=== PATIENT | female | born 1995 | race Two or more races ===

== ENCOUNTER 2016-10-28 13:44 | Emergency (ER) | payer OTHER ==
[2016-10-28 14:02] VITALS: BMI 35.5
--- NOTE | 2016-10-28 15:00 | PDOC ---
History of Present Illness <Rick Castro - Last Filed: 10/28/16 15:20> - General History Source: Patient Exam Limitations: No Limitations - History of Present Illness Initial Comments: 10/28/16 15:17 The patient is a 21-year-old woman, accompanied by her mother, with no past medical history who presents to the emergency department who presents to the emergency department for further evaluation of a persistent cough. Patient states that she has seasonal allergies and had been experiencing a constant cough for the past week. She noted one episode of scant blood when coughing today. She also reports associated pleuritic chest pain that is worse when taking deep breathes and with minimal musculoskeletal maneuvers. 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 She denies any shortness of breath, fevers, chills, night sweats, lower extremity swelling/pain , abdominal pain, nausea, vomiting, diarrhea and any urinary complaints. She denies recent travel/surgeries/immobility, lower extremity edema, calf pain or tenderness, tobacco use, hormone use, personal or family history of thrombosis. Allergies: No Known Drug Allergies. Pats Surgical History: None reported Social History: No tobacco, EtOH and recreational drug use. <Bianca Holland - Last Filed: 10/28/16 15:26> - General Chief Complaint: Chest Pain Stated Complaint: CHEST PAIN, COUGHING BLOOD Time Seen by Provider: 10/28/16 15:00 Past History - Psycho/Social/Smoking Cessation Hx Anxiety: No Suicidal Ideation: No Smoking History: Never smoked Hx Alcohol Use: No Drug/Substance Use Hx: No Substance Use Type: None <Rick Castro - Last Filed: 10/28/16 15:20> <Bianca Holland - Last Filed: 10/28/16 15:26> - Past Medical History Allergies/Adverse Reactions: Allergies Allergy/AdvReac Type Severity Reaction Status Date / Time No Known Allergies Allergy Verified 10/28/16 13:59 Home Medications: Ambulatory Orders Valacyclovir HCl [Valtrex -] 1,000 mg PO BID #14 tablet 09/20/15 Benzonatate [Tessalon Pearls -] 100 mg PO TID PRN #21 capsule 10/28/16 Loratadine [Claritin -] 10 mg PO DAILY #7 tablet 10/28/16 Naproxen [Naprosyn] 500 mg PO BID PRN #20 tablet 10/28/16 Review of Systems - Review of Systems Able to Perform ROS?: Yes Comments:: 10/28/16 15:17 CONSTITUTIONAL: Absent: fever, chills, diaphoresis, generalized weakness, malaise, loss of appetite HEENT: Absent: rhinorrhea, nasal congestion, throat pain, throat swelling, difficulty swallowing, mouth swelling, ear pain, eye pain, visual Changes CARDIOVASCULAR: Present: Chest Pain. Absent: syncope, palpitations, irregular heart rate, lightheadedness, peripheral edema RESPIRATORY: Present: Cough. Episode of scant blood. Absent: shortness of breath , dyspnea with exertion, orthopnea, wheezing, stridor GASTROINTESTINAL:Absent: abdominal pain, abdominal distension, nausea, vomiting , diarrhea, constipation, melena, hematochezia GENITOURINARY: Absent: dysuria, frequency, urgency, hesitancy, hematuria, flank pain, genital pain MUSCULOSKELETAL: Absent: myalgia, arthralgia, joint swelling SKIN: Absent: rash, itching, pallor HEMATOLOGIC/IMMUNOLOGIC: Absent: easy bleeding, easy bruising, lymphadenopathy, frequent infections ENDOCRINE:Absent: unexplained weight gain, unexplained weight loss, heat intolerance, cold intolerance NEUROLOGIC: Absent: headache, focal weakness or paresthesias, dizziness, unsteady gait, seizure, mental status changes, bladder or bowel incontinence PSYCHIATRIC: Absent: anxiety, depression, suicidal or homicidal ideation, hallucinations <Bianca Holland - Last Filed: 10/28/16 15:26> *Physical Exam - Vital Signs Last Vital Signs Temp Pulse Resp BP Pulse Ox 98.5 F 83 18 135/69 99 10/28/16 13:59 10/28/16 13:59 10/28/16 13:59 10/28/16 13:59 10/28/16 13:59 <Rick Castro - Last Filed: 10/28/16 15:20> - Vital Signs Last Vital Signs Temp Pulse Resp BP Pulse Ox 98.5 F 83 18 135/69 99 10/28/16 13:59 10/28/16 13:59 10/28/16 13:59 10/28/16 13:59 10/28/16 13:59 - Physical Exam Comments: 10/28/16 15:17 GENERAL: Well developed, well nourished. Awake and alert. No acute distress. HEENT: Normocephalic, atraumatic. PERRLA, EOMI. No conjunctival pallor. Sclera are non-icteric. Moist mucous membranes. Oropharynx is clear. NECK: Supple. Full ROM. No JVD. CARDIOVASCULAR: Regular rate and rhythm. No murmurs, rubs, or gallops. Distal pulses are 2+ and symmetric. PULMONARY: No evidence of respiratory distress. Lungs clear to auscultation bilaterally. No wheezing, rales or rhonchi. ABDOMINAL: Soft. Non-tender. Non-distended. No rebound or guarding. No organomegaly. Normoactive bowel sounds. MUSCULOSKELETAL: There is some tenderness to palpation at the bilateral sternocostal margins. Normal range of motion at all joints. No bony deformities or tenderness. No CVA tenderness. EXTREMITIES: No cyanosis. No clubbing. No edema. No calf tenderness. SKIN: Warm and dry. Normal capillary refill. No rashes. No jaundice. NEUROLOGICAL: Alert, awake, appropriate. Cranial nerves 2-12 intact. No deficits to light touch and temperature in face, upper extremities and lower extremities. No motor deficits in the in face, upper extremities and lower extremities. Normoreflexic in the upper and lower extremities. Normal speech. PSYCHIATRIC: Cooperative. Good eye contact. Appropriate mood and affect. <Bianca Holland - Last Filed: 10/28/16 15:26> Medical Decision Making - Medical Decision Making 10/28/16 15:04 The patient is very well-appearing and in no acute distress She has no risk factors for pulmonary embolism PERC negative EKG noted: Normal sinus rhythm at 78, normal axis, normal intervals, no ST changes She has signs and symptoms consistent with costochondritis Will obtain chest x-ray 10/28/16 15:20 Chest x-ray emergency Department interpretation: No acute cardiopulmonary disease Clinical impression: Cough Costochondritis I discussed the physical exam findings, ancillary test results and final diagnoses with the patient. I answered all of the patient's questions. The patient was satisfied with the care received and felt comfortable with the discharge plan and treatment plan. The patient will call their primary care physician within 24 hours to arrange follow-up and will return to the Emergency Department with any new, persistent or worsening symptoms. <Rick Castro - Last Filed: 10/28/16 15:20> *DC/Admit/Observation/Transfer <Rick Castro - Last Filed: 10/28/16 15:20> - Attestations Scribe Attestion: 10/28/16 15:17 Documentation prepared by Bianca Holland, acting as medical instrument technician for Rick Castro MD. <Bianca Holland - Last Filed: 10/28/16 15:26> Diagnosis at time of Disposition: Cough, Costochondritis - Discharge Dispostion Disposition: HOME - Prescriptions Prescriptions: Loratadine [Claritin -] 10 mg PO DAILY #7 tablet Naproxen [Naprosyn] 500 mg PO BID PRN #20 tablet PRN Reason: Pain Benzonatate [Tessalon Pearls -] 100 mg PO TID PRN #21 capsule PRN Reason: Cough - Referrals Referrals: Trina London MD [Staff Physician] - - Patient Instructions Printed Discharge Instructions: DI for Costochondritis, Allergic Rhinitis, DI for Cough -- Adult Additional Instructions: Return to the emergency department immediately with ANY new, persistent or worsening symptoms. You MUST call and follow up with your doctor tomorrow. Please make sure your doctor reviews the results of your emergency department evaluation. - Post Discharge Activity Work/School Note: Back to Work
[2016-10-28] MEDS ORDERED: IBUPROFEN 400 MG TABLET (FP) PO ONE ×2 (15:05→15:32)
[2016-10-28 15:47] VITALS: BP 135/75; PULSE 84; TEMP 98.1
--- NOTE | 2016-10-29 10:49 | EKG ---
Test Reason : Blood Pressure : / mmHG Vent. Rate : 078 BPM Atrial Rate : 078 BPM P-R Int : 130 ms QRS Dur : 080 ms QT Int : 386 ms P-R-T Axes : 029 049 019 degrees QTc Int : 440 ms NORMAL SINUS RHYTHM WITH SINUS ARRHYTHMIA NORMAL ECG NO PREVIOUS ECGS AVAILABLE Confirmed by JOSHUA PRAJAPATI, YESICA ([id number]) on 10/29/2016 10:48:51 AM Referred By: Confirmed By:YESICA LEWIS MD
== END 2016-10-28 15:47 | disposition home or self-care (01) ==
LOC: JER 13:44
DX: M94.0 Chondrocostal junction syndrome [Tietze] (principal); R05 Cough; J30.2 Other seasonal allergic rhinitis
CPT/HCPCS: 71020-TC; 93005; 93010; 99284-25

== ENCOUNTER 2017-08-18 10:36 | Emergency (ER) | payer SELFPAY ==
[2017-08-18 10:44] VITALS: BP 120/72; PULSE 81; TEMP 97.9; BMI 33.2
--- NOTE | 2017-08-18 10:55 | PDOC ---
History of Present Illness - General Chief Complaint: Vomiting/Diarrhea Stated Complaint: VOMITING/DIARRHEA (12 WKS ) Time Seen by Provider: 08/18/17 10:54 - History of Present Illness Initial Comments: 08/18/17 10:54 Ms. Bran is a 22 yo female 12 weeks w/ no pmh last seen on for UTI and headache who presents complaining of a 4 day history of nausea, vomiting, diarrhea, and headache. She reports the headache was different today in that it coincided with some blurring at either side of her vision. She has been taking daily tylenol for this headache. She reports she has had daily vomiting during her but now the vomiting coincides with new onset diarrhea which she characterizes as loose stool. Ms. Bran says that she has "not been eating well" over this same time period as she vomits more frequently. Vomit consists of yellow liquid. The patient denies chest pain, shortness of breath, headache and dizziness. Denies dysuria, frequency, urgency and hematuria. Allergies: NKDA Past History - Past Medical History Allergies/Adverse Reactions: Allergies Allergy/AdvReac Type Severity Reaction Status Date / Time No Known Allergies Allergy Verified 08/18/17 10:40 Home Medications: Ambulatory Orders Valacyclovir HCl [Valtrex -] 1,000 mg PO BID #14 tablet 09/20/15 Benzonatate [Tessalon Pearls -] 100 mg PO TID PRN #21 capsule 10/28/16 Loratadine [Claritin -] 10 mg PO DAILY #7 tablet 10/28/16 Naproxen [Naprosyn] 500 mg PO BID PRN #20 tablet 10/28/16 Cephalexin Monohydrate [Keflex -] 500 mg PO BID #14 capsule 08/05/17 Nitrofurantoin Monohyd/M-Cryst [Macrobid -] 100 mg PO BID #14 capsule 08/18/17 COPD: No - Immunization History Immunization Up to Date: Yes - Suicide/Smoking/Psychosocial Hx Smoking History: Never smoked Have you smoked in the past 12 months: No Hx Alcohol Use: No Drug/Substance Use Hx: No Substance Use Type: None Review of Systems - Review of Systems Comments:: 08/18/17 10:54 GENERAL/CONSTITUTIONAL: +Chills as described w/out fever. No weakness. HEAD, EYES, EARS, NOSE AND THROAT: +Vision "blurring" for one self limited episode earlier today. No ear pain or discharge. No sore throat. CARDIOVASCULAR: No chest pain or shortness of breath RESPIRATORY: No cough, wheezing, or hemoptysis. GASTROINTESTINAL: +Nausea with associated vomiting and diarrhea. No constipation. GENITOURINARY: No dysuria, frequency, or change in urination. MUSCULOSKELETAL: No joint or muscle swelling or pain. No neck or back pain. SKIN: No rash NEUROLOGIC: +Frontal pounding headache intermittent for the last 2 weeks. No vertigo, loss of consciousness, or change in strength/sensation. ENDOCRINE: No increased thirst. No abnormal weight change HEMATOLOGIC/LYMPHATIC: No anemia, easy bleeding, or history of blood clots. ALLERGIC/IMMUNOLOGIC: No hives or skin allergy. *Physical Exam - Vital Signs Last Vital Signs Temp Pulse Resp BP Pulse Ox 97.9 F 81 18 120/72 100 08/18/17 10:41 08/18/17 10:41 08/18/17 10:41 08/18/17 10:41 08/18/17 10:41 - Physical Exam Comments: 08/18/17 10:55 GENERAL: Awake, alert, and fully oriented, in no acute distress HEAD: No signs of trauma, normocephalic, atraumatic EYES: PERRLA, EOMI, sclera anicteric, conjunctiva clear ENT: Auricles normal inspection, hearing grossly normal, nares patent, oropharynx clear without exudates. Moist mucosa NECK: Normal ROM, supple, no lymphadenopathy, JVD, or masses LUNGS: No distress, speaks full sentences, clear to auscultation bilaterally HEART: Regular rate and rhythm, normal S1 and S2, no murmurs, rubs or gallops, peripheral pulses normal and equal bilaterally. ABDOMEN: Soft, nontender, normoactive bowel sounds. No guarding, no rebound. No masses EXTREMITIES: Normal inspection, Normal range of motion, no edema. No clubbing or cyanosis. NEUROLOGICAL: Cranial nerves II through XII grossly intact. Normal speech, normal gait, no focal sensorimotor deficits SKIN: Warm, Dry, normal turgor, no rashes or lesions noted. ED Treatment Course - LABORATORY CBC & Chemistry Diagram: 08/18/17 11:10 08/18/17 11:10 Medical Decision Making - Medical Decision Making 08/18/17 12:06 Ms. Bran is a 22 yo female w/ pmh as described who presents w/ nausea/ vomiting/diarrhea/headache in . CBC/CMP/UA/Urine culture sent for evaluation. Due to patient reporting prior 1/2 hour episode of "blurry vision" to outer vision meek, Head CT considered and benefits/risks discussed with patient. Given patient's status and relative risk of injury to fetus vs. risk of single limited vision episode, patient elected to hold off on CT at this time and follow-up with primary care provider instead. 08/18/17 13:48 CBC/CMP/UA as below. Patient noted to have UTI. All other labs grossly wnl. Discharging patient to home w/ Rx for UTI. Treatment started in ER. Patient will follow-up with [facility] at previously scheduled appointment tomorrow. Laboratory Results - last 24 hr 08/18/17 08/18/17 08/18/17 11:00 11:10 11:10 WBC 9.5 RBC 4.70 Hgb 13.6 Hct 40.1 MCV 85.2 MCH 29.0 MCHC 34.0 RDW 13.3 Plt Count 345 MPV 8.7 Neutrophils % 65.3 Lymphocytes % 25.5 Monocytes % 7.8 Eosinophils % 0.8 Basophils % 0.6 Sodium 138 Potassium 4.1 Chloride 106 Carbon Dioxide 23 Anion Gap 9 BUN 5 L Creatinine 0.5 L Creat Clearance w eGFR > 60 Random Glucose 76 Calcium 8.9 Total Bilirubin 0.4 D AST 15 ALT 22 Alkaline Phosphatase 91 Total Protein 7.4 Albumin 3.5 Urine Color Lluvia Urine Appearance Slcloudy Urine pH 5.0 Ur Specific Negley 1.026 Urine Protein 1+ H Urine Glucose (UA) Negative Urine Ketones Negative Urine Blood 1+ H Urine Nitrite Negative Urine Bilirubin Negative Urine Urobilinogen 4.0 e.u/dl H Ur Leukocyte Esterase 2+ H Urine WBC (Auto) 63 Urine RBC (Auto) 111 Ur Epithelial Cells Rare Calcium Oxalate Crystal Few Hyaline Casts 2 Urine Mucus Many *DC/Admit/Observation/Transfer Diagnosis at time of Disposition: UTI (urinary tract infection) Qualifiers: Urinary tract infection type: site unspecified Hematuria presence: with hematuria Qualified Code(s): N39.0 - Urinary tract infection, site not specified ; R31.9 - Hematuria, unspecified; R31.9 - Hematuria, unspecified - Prescriptions Prescriptions: Nitrofurantoin Monohyd/M-Cryst [Macrobid -] 100 mg PO BID #14 capsule - Referrals - Patient Instructions Printed Discharge Instructions: DI for Urinary Tract Infection (UTI) Additional Instructions: Please return if any increase in nausea, vomiting, diarrhea, or unable to keep down fluids. Follow-up at scheduled [facility] appointment tomorrow as discussed for further evaluation. - Post Discharge Activity
[2017-08-18 11:16] LABS: URINE APPEARANCE SLCLOUDY; URINE BILIRUBIN NEGATIVE (NEGATIVE); URINE BLOOD 1+ (NEGATIVE); URINE COLOR AMBER; URINE GLUCOSE (UA) NEGATIVE (NEGATIVE); URINE KETONE NEGATIVE (NEGATIVE); URINE NITRITE NEGATIVE (NEGATIVE); URINE UROBILINOGEN 4.0 E.U/dl mg/dL (0.2-1.0)
[2017-08-18 11:17] LABS: URINE LEUK ESTERASE 2+ (NEGATIVE); URINE PROTEIN 1+ (NEGATIVE)
[2017-08-18 11:21] LABS: CALCIUM OXALATE CRYSTALS FEW /hpf (NONE SEEN); EPI CELLS RARE /HPF (FEW); URINE HYALINE CAST 2 /lpf; URINE MUCUS MANY
[2017-08-18 11:31] LABS: BASO % 0.6 % (0-2.0); EOS % 0.8 % (0-4.5); HEMATOCRIT 40.1 % (32.4-45.2); HEMOGLOBIN 13.6 GM/dL (10.7-15.3); LYMPH % 25.5 % (8-40); MEAN CELL VOLUME 85.2 fl (80-96); MEAN PLT VOLUME 8.7 fl (7.5-11.1); MONO % 7.8 % (3.8-10.2); NEUT % 65.3 % (42.8-82.8); PLATELET COUNT 345 K/MM3 (134-434); RDW 13.3 % (11.6-15.6); WHITE BLOOD COUNT 9.5 K/mm3 (4.0-10.0)
[2017-08-18 11:56] LABS: ALBUMIN 3.5 g/dl (3.4-5.0); ANION GAP 9 (8-16); BILIRUBIN,TOTAL 0.4 mg/dL (0.2-1.0); BLOOD UREA NITROGEN 5 mg/dL (7-18); CALCIUM 8.9 mg/dL (8.5-10.1); CHLORIDE 106 mmol/L (98-107); CO2 23 mmol/L (21-32); CREATININE 0.5 mg/dL (0.55-1.02); GLUCOSE,RANDOM 76 mg/dL (74-106); SGPT/ALT 22 U/L (12-78); SODIUM 138 mmol/L (136-145); TOT PROT 7.4 g/dl (6.4-8.2)
[2017-08-18 11:57] LABS: ALK PHOS 91 U/L (45-117)
[2017-08-18 12:00] LABS: POTASSIUM 4.1 mmol/L (3.5-5.1)
[2017-08-18 12:01] LABS: SGOT/AST 15 U/L (15-37)
[2017-08-18] MEDS ORDERED: METOCLOPRAMIDE HCL INJECTION 10 MG/2 ML VIAL ONE (12:05)
[2017-08-18] MEDS ORDERED: METOCLOPRAMIDE HCL INJECTION 10 MG/2 ML VIAL IVPB ONE (12:06)
[2017-08-18] MEDS ORDERED: SODIUM CHLORIDE 1,000 ML IV STA (12:06)
--- NOTE | 2017-08-18 13:59 | PDOC ---
Attending Attestation - Resident Resident Name: Jeffrey Cota - ED Attending Attestation I have performed the following: I have examined & evaluated the patient, The case was reviewed & discussed with the resident, I agree w/resident's findings & plan, Exceptions are as noted - Medical Decision Making 08/18/17 12:54 22-year-old female presents the emergency department with multiple complaints including nausea, vomiting, and diarrhea. Patient also reporting intermittent headaches that were associated with intermittent blurry vision. Patient reports previous headaches for years with similar symptoms that have been diagnosed as migraines. No headache currently. Given N/V/D, will obtain basic labs, UA. Pt currently tolerating PO, drinking juice. Will reassess 08/18/17 13:57 Labs unremarkable. UA with UTI. Will treat with macrobid. Pt tolerating PO, no diarrhea in ED. No headache in ED. Has appointment with Dr. Yasemin Leiva tomorrow for OB f/u. Pt also does not have a PMD, will refer to Dr. Andres so that she can establish care. Pt feels better, requests DC home. I discussed the physical exam findings, ancillary test results and final diagnoses with the patient. I answered all of the patient's questions. The patient was satisfied with the care received and felt comfortable with the discharge plan and treatment plan. The patient will call their primary care physician within 24 hours to arrange follow-up and will return to the Emergency Department with any new, persistent or worsening symptoms. <Shazia Hernandez - Last Filed: 08/18/17 13:54> - HPI HPI: 08/18/17 14:57 The patient is a 22 year old female who is 12 weeks with a significant PMH of recent UTI (08/05/17) who presents to the emergency department with diarrhea and headache beginning approximately 4 days ago. The patient reports she has been vomiting almost daily throughout her but over the past 4 days it has been associated with diarrhea. She also notes that today her headache was associated with a few seconds of peripheral vision blurring which resolved on its own, prompting her visit. She reports previous migraine headaches also a/w blurry vision that self resolves prior to her . She denies vision changes at presentation. The patient denies chest pain or shortness of breath. She denies fevers or chills. She denies abd or pelvic cramping, denies vaginal bleeding. Allergies: NKA - Physicial Exam PE: 08/18/17 14:57 GENERAL: Awake, alert, and fully oriented, in no acute distress HEAD: No signs of trauma EYES: PERRLA, EOMI, sclera anicteric, conjunctiva clear ENT: Auricles normal inspection, hearing grossly normal, nares patent, oropharynx clear without exudates. Moist mucosa NECK: Normal ROM, supple, no lymphadenopathy, JVD, or masses LUNGS: Breath sounds equal, clear to auscultation bilaterally. No wheezes, and no crackles HEART: Regular rate and rhythm, normal S1 and S2, no murmurs, rubs or gallops ABDOMEN: Soft, nontender, normoactive bowel sounds. No guarding, no rebound. No masses. Uterus palpable at or slightly below pubic symphasis EXTREMITIES: Normal range of motion, no edema. No clubbing or cyanosis. No cords , erythema, or tenderness BACK: No midline spinal tenderness in cervical/thoracic/lumbar region NEUROLOGICAL: Normal speech, cranial nerves intact, negative pronator drift, 5/ 5 strength in all 4 extremities, normal sensation to light touch in all 4 extremities, normal cerebellar exam, normal gait, normal reflexes and tone SKIN: Warm, Dry, normal turgor, no rashes or lesions noted. <Chinmay Murphy - Last Filed: 08/18/17 14:57>
[2017-08-18] MEDS ORDERED: NITROFURANTOIN MACROCRYSTAL 50 MG CAPSULE (FP) PO SCH (14:00)
[2017-08-18] MEDS ORDERED: NITROFURANTOIN MACROCRYSTAL 50 MG CAPSULE (FP) ONE (14:07)
== END 2017-08-18 14:08 | disposition home or self-care (01) ==
LOC: JER 10:36
PROC: 3E033GC Introduction of Other Therapeutic Substance into Peripheral Vein, Percutaneous Approach (ICD-10-PCS; principal; 2017-08-18)
PROC: 3E0337Z Introduction of Electrolytic and Water Balance Substance into Peripheral Vein, Percutaneous Approach (ICD-10-PCS; 2017-08-18)
DX: O23.41 Unspecified infection of urinary tract in pregnancy, first trimester (principal); Z3A.12 12 weeks gestation of pregnancy; R31.9 Hematuria, unspecified
CPT/HCPCS: 36415; 80053; 81003; 81015; 85025; 87086; 99283-25

== ENCOUNTER 2017-11-02 18:56 | Emergency (ER) | payer OTHER ==
[2017-11-02 19:27] VITALS: BP 116/61; PULSE 83; TEMP 98.8; BMI 27.4
--- NOTE | 2017-11-02 19:28 | PDOC ---
Rapid Medical Evaluation Chief Complaint: Cold Symptoms Time Seen by Provider: 11/02/17 19:23 Medical Evaluation: Allergies Allergy/AdvReac Type Severity Reaction Status Date / Time No Known Allergies Allergy Verified 08/18/17 10:40 11/02/17 19:23 " flu like symptoms" Xx 1 day. tactile temps, cough runny nose ear pain and throat pain PE; breath sounds clear + cervical lymphadenopathy. pharyngeal erythema A: URI ; throat pain P: rapis strep 11/02/17 19:27 Discharge Disposition - Diagnosis Upper respiratory infection Qualifiers: URI type: unspecified URI Qualified Code(s): J06.9 - Acute upper respiratory infection, unspecified - Referrals - Patient Instructions - Post Discharge Activity
--- NOTE | 2017-11-02 20:02 | PDOC ---
History of Present Illness - General Chief Complaint: Cold Symptoms Stated Complaint: COLD SYPMTOMS (20 WKS ) Time Seen by Provider: 11/02/17 19:23 - History of Present Illness Initial Comments: 22-year-old healthy female without any significant past medical history presents for evaluation of flulike symptoms 1 day with subjective fever at home she complains of an itchy scratchy throat, runny nose, and right ear itchiness. 11/02/17 20:00 Past History - Past Medical History Allergies/Adverse Reactions: Allergies Allergy/AdvReac Type Severity Reaction Status Date / Time No Known Allergies Allergy Verified 11/02/17 19:27 Home Medications: Ambulatory Orders NK [No Known Home Medication] 11/02/17 COPD: No - Immunization History Immunization Up to Date: Yes - Suicide/Smoking/Psychosocial Hx Smoking History: Never smoked Have you smoked in the past 12 months: No Information on smoking cessation initiated: No Hx Alcohol Use: No Drug/Substance Use Hx: No Substance Use Type: None Review of Systems - Review of Systems Constitutional: Yes: See HPI HEENTM: Yes: See HPI Respiratory: Yes: See HPI. No: Shortness of Breath Cardiac (ROS): No: Chest Pain *Physical Exam - Vital Signs Last Vital Signs Temp Pulse Resp BP Pulse Ox 98.8 F 83 16 116/61 97 11/02/17 19:25 11/02/17 19:25 11/02/17 19:25 11/02/17 19:25 11/02/17 19:25 - Physical Exam Comments: GENERAL: The patient is awake, alert, and fully oriented, in no acute distress. HEAD: Normal with no signs of trauma. EYES: Pupils equal, round and reactive to light, extraocular movements intact, sclera anicteric, conjunctiva clear. ENT: Ears normal, nares patent, oropharynx is mildly injected without exudates. Moist mucous membranes. NECK: Normal range of motion, supple without lymphadenopathy, JVD, or masses. LUNGS: Breath sounds equal, clear to auscultation bilaterally. No wheezes, and no crackles. HEART: Regular rate and rhythm, normal S1 and S2 without murmur, rub or gallop. ABDOMEN: Soft, nontender, normoactive bowel sounds. No guarding, no rebound. No masses. EXTREMITIES: Normal range of motion, no edema. No clubbing or cyanosis. No cords, erythema, or tenderness. NEUROLOGICAL: Cranial nerves II through XII grossly intact. Normal speech, normal gait. PSYCH: Normal mood, normal affect. SKIN: Warm, Dry, normal turgor, no rashes or lesions noted. 11/02/17 20:01 Medical Decision Making - Medical Decision Making Patient eloped prior to the completion of the evaluation. Of note the lab took about over 3 hours for a rapid strep test. 11/02/17 22:32 *DC/Admit/Observation/Transfer Diagnosis at time of Disposition: Upper respiratory infection Qualifiers: URI type: unspecified URI Qualified Code(s): J06.9 - Acute upper respiratory infection, unspecified - Discharge Dispostion Disposition: ELOPED - Referrals Referrals: Daylin Rodriguez MD [Primary Care Provider] - - Patient Instructions - Post Discharge Activity
== END 2017-11-02 22:35 | disposition left against medical advice (07) ==
LOC: JERFT 18:56
DX: O26.892 Other specified pregnancy related conditions, second trimester (principal); O99.512 Diseases of the respiratory system complicating pregnancy, second trimester; Z3A.20 20 weeks gestation of pregnancy
CPT/HCPCS: 87070; 87430; 99281-25

== ENCOUNTER 2018-03-03 01:15 | Inpatient (IN) | payer OTHER ==
[2018-03-03] MEDS ORDERED: DEXTROSE 5%-LACTATED RINGERS 1,000 ML IV SCH (02:00)
[2018-03-03] MEDS ORDERED: AMPICILLIN - 2 GM in SODIUM CHLORIDE 100 ML IVPB ONE (04:00)
[2018-03-03] MEDS: ELECTROLYTE-148 SOLN 1,000 ML IV SCH (04:30)
[2018-03-03] MEDS ORDERED: AMPICILLIN SODIUM 2 GM VIAL ONE (04:44)
[2018-03-03 05:01] VITALS: BMI 34.8
[2018-03-03] MEDS ORDERED: BUTORPHANOL TARTRATE 1 MG/ML VIAL ONE ×2 (05:11)
[2018-03-03] MEDS ORDERED: PROMETHAZINE HCL 25 MG/1 ML VIAL ONE (05:11)
[2018-03-03 05:25] LABS: BASO % 0.4 % (0-2.0); EOS % 1.1 % (0-4.5); HEMATOCRIT 35.2 % (32.4-45.2); HEMOGLOBIN 11.5 GM/dL (10.7-15.3); LYMPH % 17.4 % (8-40); MCH 25.5 pg (25.7-33.7); MCHC 32.7 g/dl (32.0-36.0); MEAN PLT VOLUME 9.2 fl (7.5-11.1); MONO % 7.2 % (3.8-10.2); NEUT % 73.9 % (42.8-82.8); PLATELET COUNT 367 K/MM3 (134-434); RBC 4.51 M/mm3 (3.60-5.2); RDW 15.3 % (11.6-15.6); WHITE BLOOD COUNT 12.5 K/mm3 (4.0-10.0)
[2018-03-03] MEDS ORDERED: PROMETHAZINE HCL 25 MG/1 ML VIAL IVPB ONE (05:45)
[2018-03-03] MEDS ORDERED: BUTORPHANOL TARTRATE 1 MG/ML VIAL IVPB ONE (05:45)
[2018-03-03 05:47] LABS: ANION GAP 11 MMOL/L (8-16); BLOOD UREA NITROGEN 7 mg/dL (7-18); CALCIUM 9.1 mg/dL (8.5-10.1); CHLORIDE 110 mmol/L (98-107); CO2 20 mmol/L (21-32); CREATININE 0.4 mg/dL (0.55-1.3); GLUCOSE,RANDOM 112 mg/dL (74-106); POTASSIUM 4.3 mmol/L (3.5-5.1); SODIUM 140 mmol/L (136-145)
[2018-03-03 05:53] LABS: INR 0.96 (0.83-1.09); PROTHROMBIN TIME (PATIENT) 10.9 SEC (9.7-13.0)
[2018-03-03] MEDS ORDERED: FENTANYL/BUPIVACAINE/NS/PF - PCEA - 50 ML DISP.SYRIN EP ONE (05:53)
[2018-03-03 05:56] LABS: ACTIVATED PTT 32.1 SECONDS (25.2-36.5)
--- NOTE | 2018-03-03 06:17 | HP ---
Past Medical History - Primary Care Physician PCP:: Kelby Anderson - Admission Chief Complaint: pregnancty 39 .4 weeks, labor History of Present Illness: 23 y o f g 1 p0 39.4 weeks, labor, no rom, no bleeding , cx 3 cm 80 vx -2 mi, fhr cat 1, regular contraction History Source: Patient Limitations to Obtaining History: No Limitations - Past Medical History ...: 1 ...Para: 0 ...Term: 0 ...: 0 ...Spon : 0 ...Induced : 0 ...Multiple Gestation: 0 ...LMP: 05/30/17 ... Weeks Gestation by Dates: 39.4 ...EDC by Dates: 03/06/18 - Past Surgical History Hx Myomectomy: No Hx Transabdominal Cerclage: No - Smoking History Smoking history: Never smoked Have you smoked in the past 12 months: No - Alcohol/Substance Use Hx Alcohol Use: No Home Medications - Allergies Allergies/Adverse Reactions: Allergies Allergy/AdvReac Type Severity Reaction Status Date / Time No Known Allergies Allergy Verified 03/03/18 01:53 - Home Medications Home Medications: Ambulatory Orders Ferrous Sulfate 325 mg PO DAILY 03/03/18 Vitamins (Sjr) - 1 tab PO DAILY 03/03/18 Review of Systems - Review of Systems Constitutional: reports: No Symptoms HENT: reports: No Symptoms Neck: reports: No Symptoms Cardiovascular: reports: No Symptoms Respiratory: reports: No Symptoms Gastrointestinal: reports: No Symptoms Genitourinary: reports: No Symptoms Breasts: reports: No Symptoms Reported Musculoskeletal: reports: No Symptoms Integumentary: reports: No Symptoms Neurological: reports: No Symptoms Endocrine: reports: No Symptoms Hematology/Lymphatic: reports: No Symptoms Psychiatric: reports: No Symptoms Physical Exam - Maternity Vital Signs: Vital Signs Temperature 98.3 F 03/03/18 04:53 Pulse Rate 72 03/03/18 04:53 Respiratory Rate 18 03/03/18 04:53 Blood Pressure 129/80 03/03/18 04:53 O2 Sat by Pulse Oximetry (%) Constitutional: Yes: Well Nourished, No Distress, Calm Eyes: Yes: WNL, Conjunctiva Clear, EOM Intact HENT: Yes: WNL, Atraumatic, Normocephalic Neck: Yes: WNL, Supple, Trachea Midline Cardiovascular: Yes: WNL, Regular Rate and Rhythm Breast(s): Yes: WNL - Abdominal Exam/OB Fundal Height: 40 Number of Fetuses: Single Presentation: Vertex Contractions: Yes Regularity: Regular Intensity: Mod/Strong Monitor Mode: External Heart Rate Location: [facility] Category: I Decelerations: None - Vaginal Exam/OB Vaginal Bleediing: Bloody Show Amniotic Membrane Status: Intact Presentation: Vertex/Position Station: -2 - Physical Exam Musculoskeletal: Yes: WNL Edema: Yes Edema: LLE: Trace, RLE: Trace Deep Tendon Reflex Grade: Normal +2 Psychiatric: Yes: WNL - Labs Lab Results: CBC, BMP 03/03/18 04:40 Hemorrhage Risk Assessment - Risk Factors Medium Risk Factors: Yes: None High Risk Factors: Yes: None Risk Score: 1 Risk Level: Medium Risk Problem List - Problems (1) with 39 completed weeks gestation Code(s): Z3A.39 - 39 WEEKS GESTATION OF (2) Labor established Code(s): MQN0491 - Assessment/Plan admit, fhm, pain management
[2018-03-03] MEDS ORDERED: OXYTOCIN 20 UNITS in 0.9% NS 20 UNIT/1,000 ML INFUS.BAG IV ONE (06:29)
[2018-03-03] MEDS ORDERED: LIDOCAINE HCL 1% PRESERVATIVE FREE - 30ML VIAL ONE (06:29)
[2018-03-03 06:49] LABS: COCAINE, UR NEGATIVE ng/ml (CUTOFF=300); METHADONE, UR NEGATIVE ng/ml (CUTOFF=300); OPIATES, URI NEGATIVE ng/ml (CUTOFF=300); PHENCYCLIDINE,URINE NEGATIVE ng/ml (CUTOFF=25); URINE AMPHETAMINES NEGATIVE ng/ml (CUTOFF=500); URINE BARBITURATES NEGATIVE ng/ml (CUTOFF=200); URINE BENZODIAZEPINES NEGATIVE ng/ml (CUTOFF=200)
[2018-03-03] MEDS ORDERED: OXYTOCIN 30 UNITS in 0.9% NS 30 UNIT/500 ML INFUS.BAG IVPB ONE (07:05)
[2018-03-03] MEDS: OXYTOCIN 20 UNITS in 0.9% NS 20 UNIT/1,000 ML INFUS.BAG IV SCH (07:10)
[2018-03-03] MEDS ORDERED: WITCH HAZEL 50% (TUCKS) 40 PAD/JAR PAD TP PRN (07:25)
[2018-03-03] MEDS ORDERED: BENZOCAINE 28 GM HEMORRHOIDAL OINTMENT TP PRN (07:25)
[2018-03-03] MEDS ORDERED: BENZOCAINE 20% 57 GM BOTTLE TP PRN (07:25)
[2018-03-03] MEDS ORDERED: IBUPROFEN 600 MG TABLET (FP) PO PRN (07:25)
[2018-03-03] MEDS ORDERED: METHYLERGONOVINE MALEATE 0.2 MG/1 ML AMP IM PRN (07:25)
[2018-03-03] MEDS ORDERED: ACETAMINOPHEN 325 MG TABLET (FP) PO PRN (07:25)
[2018-03-03] MEDS ORDERED: BISACODYL 10 MG SUPP.RECT RC PRN (07:25)
[2018-03-03] MEDS ORDERED: D5W-LR W/ 20 UNITS OXYTOCIN 20 UNIT/1,000 ML INFUS.BAG IV SCH (07:30)
[2018-03-03] MEDS ORDERED: OXYTOCIN 10 UNITS/ML VIAL ONE (08:35)
[2018-03-03] MEDS ORDERED: AMPICILLIN - 1 GM in SODIUM CHLORIDE 100 ML IVPB SCH (09:00)
[2018-03-03] MEDS: FERROUS SO4 325 MG TABLET (FP) PO SCH ×2 (10:50→23:07)
[2018-03-03] MEDS: PRENATAL VITAMINS W/ FOLIC ACID TABLET (FP) PO SCH (10:51)
[2018-03-04 08:05] LABS: BASO % 0.5 % (0-2.0); EOS % 1.2 % (0-4.5); HEMATOCRIT 34.2 % (32.4-45.2); HEMOGLOBIN 10.6 GM/dL (10.7-15.3); LYMPH % 22.3 % (8-40); MCH 24.6 pg (25.7-33.7); MEAN CELL VOLUME 79.3 fl (80-96); MEAN PLT VOLUME 9.1 fl (7.5-11.1); MONO % 7.8 % (3.8-10.2); NEUT % 68.2 % (42.8-82.8); PLATELET COUNT 333 K/MM3 (134-434); RBC 4.32 M/mm3 (3.60-5.2); WHITE BLOOD COUNT 13.9 K/mm3 (4.0-10.0)
--- NOTE | 2018-03-04 08:10 | PN ---
Post Progress Note - Subjective Subjective: 23 yo Para 1 status post vaginal delivery, seen and evaluated. Doing well. Post Day: 1 Type of Delivery: Vital Signs: Vital Signs Temperature 98.3 F 03/04/18 05:00 Pulse Rate 104 H 03/04/18 05:00 Respiratory Rate 20 03/04/18 05:00 Blood Pressure 114/71 03/04/18 05:00 O2 Sat by Pulse Oximetry (%) Breast Exam: Yes: Soft Uterus: Yes: Fundus Firm Abdomen/GI: Yes: Abdomen soft, Tolerating PO Lochia: Yes: Rubra Lochia, amount: Moderate Extremities: Yes: Calves non-tender Activity: Ambulating - Labs Labs: CBC WBC 13.9 K/mm3 (4.0-10.0) H 03/04/18 07:00 RBC 4.32 M/mm3 (3.60-5.2) 03/04/18 07:00 Hgb 10.6 GM/dL (10.7-15.3) L 03/04/18 07:00 Hct 34.2 % (32.4-45.2) 03/04/18 07:00 MCV 79.3 fl (80-96) L 03/04/18 07:00 MCH 24.6 pg (25.7-33.7) L 03/04/18 07:00 MCHC 31.0 g/dl (32.0-36.0) L 03/04/18 07:00 RDW 15.0 % (11.6-15.6) 03/04/18 07:00 Plt Count 333 K/MM3 (134-434) 03/04/18 07:00 MPV 9.1 fl (7.5-11.1) 03/04/18 07:00 Absolute Neuts (auto) 9.4 K/mm3 (1.5-8.0) H 03/04/18 07:00 Neutrophils % 68.2 % (42.8-82.8) 03/04/18 07:00 Lymphocytes % 22.3 % (8-40) D 03/04/18 07:00 Monocytes % 7.8 % (3.8-10.2) 03/04/18 07:00 Eosinophils % 1.2 % (0-4.5) 03/04/18 07:00 Basophils % 0.5 % (0-2.0) 03/04/18 07:00 Nucleated RBC % 0 % (0-0) 03/04/18 07:00 Problem List - Problems (1) Status post vaginal delivery Code(s): [id number] - Assessment/Plan Status post vaginal delivery Stable Continue routine care
[2018-03-04] MEDS ORDERED: DIPHTH,PERTUSS(ACELL),TET 0.5 ML DISP.SYRIN IM ONE (10:06)
[2018-03-04] MEDS: PRENATAL VITAMINS W/ FOLIC ACID TABLET (FP) PO SCH (10:33)
[2018-03-04] MEDS: FERROUS SO4 325 MG TABLET (FP) PO SCH ×2 (10:33→21:19)
[2018-03-04] MEDS: OXYTOCIN 20 UNITS in 0.9% NS 20 UNIT/1,000 ML INFUS.BAG IV SCH (10:55)
[2018-03-04] MEDS: ELECTROLYTE-148 SOLN 1,000 ML IV SCH (10:56)
[2018-03-04] MEDS ORDERED: SENNOSIDES/DOCUSATE COMBO (SENNA PLUS) TABLET (UD) PO PRN (22:00)
[2018-03-05] MEDS: PRENATAL VITAMINS W/ FOLIC ACID TABLET (FP) PO SCH (09:41)
[2018-03-05] MEDS: FERROUS SO4 325 MG TABLET (FP) PO SCH (09:41)
--- NOTE | 2018-03-05 10:54 | DS ---
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 Vital Signs: Vital Signs Temperature 97.9 F 03/04/18 21:00 Pulse Rate 95 H 03/04/18 21:00 Respiratory Rate 20 03/04/18 21:00 Blood Pressure 126/63 03/04/18 21:00 O2 Sat by Pulse Oximetry (%) Constitutional: Yes: Well Nourished Eyes: Yes: Conjunctiva Clear HENT: Yes: Atraumatic Neck: Yes: Supple Cardiovascular: Yes: Regular Rate and Rhythm Respiratory: Yes: Regular Gastrointestinal: Yes: Normal Bowel Sounds ...Rectal Exam: Yes: WNL External Genitalia: Yes: Normal Vaginal Exam: Yes: Normal Cervix: Yes: Normal Uterus: Yes: Firm ....Post : Yes: Uterus firm, Moderate lochia serosa Breast(s): Yes: WNL Musculoskeletal: Yes: WNL Extremities: Yes: WNL Neurological: Yes: Alert, Oriented ...Motor Strength: WNL Psychiatric: Yes: Alert, Oriented Labs: CBC, BMP 03/04/18 07:00 03/03/18 04:40 Delivery - Delivery Episiotomy/Laceration: None EBL (cc): 300 Delivery, Single - Stages of Labor Date 1st Stage Initiatied: 03/03/18 Time 1st Stage Initiated: 03:00 Date 2nd Stage Initiated: 03/03/18 Time 2nd Stage Initiated: 07:00 Date of Delivery: 03/03/18 Time of Delivery: 07:05 Time Placenta Delivered: 07:10 - 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 Infant Gender: Female Weight: 6 lb 9 oz Position: Left, OA Total Hours ROM (Hrs/Mins): 5min - 1 Minute Total Score: 9 5 Minutes Total Score: 9 - [place] Feeding Plan Initial Plan: Elected not to breastfeed exclusively throughout hospitalization Discharge Summary Reason For Visit: LABOR Current Active Problems Labor established (Acute) with 39 completed weeks gestation (Acute) Status post vaginal delivery (Acute) Procedures: Principal: Normal vaginal delivery Hospital Course: Routine care Condition: Good - Instructions Diet, Activity, Other Instructions: Regular diet No douching, no sexual intercourse x 6 weeks F/U in clinic in 6 weeks Disposition: HOME - Home Medications Comprehensive Discharge Medication List: Ambulatory Orders Ferrous Sulfate 325 mg PO DAILY 09/21/18 Vitamins (Sjr) - 1 tab PO DAILY 03/03/18
[2018-03-05 12:32] VITALS: BP 124/68; PULSE 89; TEMP 98.5
== END 2018-03-05 13:00 | disposition home or self-care (01) | DRG 560 ==
LOC: JDEL 01:15 → JLDR 04:00 → J3W 09:18
PROVIDERS: ADMIT Obstetrics & Gynecology; ATTEND Obstetrics & Gynecology
PROC: 10E0XZZ Delivery of Products of Conception, External Approach (ICD-10-PCS; principal; 2018-03-03)
DX: O80 Encounter for full-term uncomplicated delivery (principal); Z3A.39 39 weeks gestation of pregnancy; Z37.0 Single live birth
CPT/HCPCS: 36415; 59409; 80048; 80307; 85025; 85610; 85730; 86593; 86850; 86900; 86901; 87389; 90686; 90715; G0008

== ENCOUNTER 2019-12-14 19:12 | Emergency (ER) | payer OTHER ==
[2019-12-14] MEDS ORDERED: METOCLOPRAMIDE HCL INJECTION 10 MG/2 ML VIAL IVPUSH ONE (19:20)
--- NOTE | 2019-12-14 19:20 | PDOC ---
Rapid Medical Evaluation Time Seen by Provider: 12/14/19 19:18 Medical Evaluation: Allergies Allergy/AdvReac Type Severity Reaction Status Date / Time No Known Allergies Allergy Verified 03/03/18 01:53 12/14/19 19:18 I performed a brief in-person evaluation of this patient. Pt is a 24 y/o female with a frontal headache, nausea, vomiting for the last 4 days. She states she gets headaches but this one is stronger. She denies any fevers or chills. + photophobia. Pertinent physical exam findings: speaking in full sentences, no respiratory distress I have ordered the following: saline lock, NS bolus, Reglan, Benadryl Patient to proceed to ED for further evaluation. Discharge Disposition - Diagnosis Headache - Referrals - Patient Instructions - Post Discharge Activity
[2019-12-14 19:21] VITALS: BMI 33.9
[2019-12-14] MEDS ORDERED: SODIUM CHLORIDE 0.9% 500 ML INFUS.BAG IV ONE (19:21)
[2019-12-14] MEDS ORDERED: METOCLOPRAMIDE HCL INJECTION 10 MG/2 ML VIAL ONE (19:39)
[2019-12-14] MEDS ORDERED: ONDANSETRON 4 MG/2 ML VIAL IVPUSH ONE (20:46)
--- NOTE | 2019-12-14 21:20 | PDOC ---
History of Present Illness - General Chief Complaint: Headache Stated Complaint: MIGRAINS Time Seen by Provider: 12/14/19 19:18 History Source: Patient Exam Limitations: No Limitations - History of Present Illness Initial Comments: 12/14/19 21:11 HISTORY OF PRESENT ILLNESS: 24-year-old woman with history of headaches presents emergency department for evaluation of frontal headache which is present over the past 3 days. Patient reports the pain is 10+/10 that is radiating to her right rastafari. She reports the pattern of her headache is consistent with her usual headache pattern only more intense this time. Patient took 2 Vicks p.m. prior to arrival in the emergency department with minimal relief of symptoms. Patient endorses photophobia and phonophobia. She reports feeling mildly dizzy but denies any blurry vision. Patient reports one episode of undigested food stuff vomitus earlier today prior to arrival. Patient reports recall her pain is 4/10. No recent travel or sick contacts. PAST MEDICAL HISTORY: See HPI SURGICAL HISTORY: Denies ALLERGIES: No known drug allergies REVIEW OF SYSTEMS General/Constitutional: Denies fever or chills. Denies weakness, weight change. HEENT: Denies change in vision. Denies ear pain or discharge. Denies sore throat. Cardiovascular: Denies chest pain or shortness of breath. Respiratory: Denies cough, wheezing, or hemoptysis. Gastrointestinal: Denies nausea, vomiting, diarrhea or constipation. Denies rectal bleeding. Genitourinary: Denies dysuria, frequency, or change in urination. Musculoskeletal: Denies joint or muscle swelling or pain. Denies neck or back pain. Skin and breasts: Denies rash or easy bruising. Neurologic: See HPI Psychiatric: Denies depression or anxiety. Endocrine: Denies increased thirst. Denies abnormal weight change. Hematologic/Lymphatic: Denies anemia, easy bleeding, or history of blood clots. Allergic/Immunologic: Denies hives or skin allergy. Denies latex allergy. PHYSICAL EXAM General Appearance: Well-appearing, appropriately dressed. No apparent distress, no intoxication. HEENT: EOMI, PERRLA, normal ENT inspection, normal voice, TMs normal, pharynx normal. No conjunctival pallor. No scleral icterus. Neck: Supple. Trachea midline. No tenderness, rigidity, carotid bruit, stridor, lymphadenopathy, or thyromegaly. Respiratory/Chest: Lungs CTAB. No shortness of breath, chest tenderness, respiratory distress, accessory muscle use. No crackles, rales, rhonchi, stridor, wheezing, dullness Cardiovascular: RRR. S1, S2. No JVD, murmur, bradycardia, tachycardia. Neurologic: continuous absorption process operator II-XII intact. Fully oriented, alert. Appropriate mood/affect. Motor strength 5/5. No appreciable EOM palsy, facial droop or sensory deficit. Gait steady. Normal fooaco-ys-srel testing. Photophobia present. Past History - Medical History Allergies/Adverse Reactions: Allergies Allergy/AdvReac Type Severity Reaction Status Date / Time No Known Allergies Allergy Verified 12/14/19 19:21 Home Medications: Ambulatory Orders Ferrous Sulfate 325 mg PO DAILY 03/03/18 Vitamins (Sjr) - 1 tab PO DAILY 03/03/18 Asthma: No Cancer: No Cardiac Disorders: No COPD: No Diabetes: No HTN: No Seizures: No Thyroid Disease: No - Immunization History Immunization Up to Date: Yes - Psycho-Social/Smoking History Smoking History: Never smoked Have you smoked in the past 12 months: No - Substance Abuse Hx (Audit-C & DAST Scrn) How often the patient has a drink containing alcohol: Never Score: In Men: 4 or > Positive; In Women: 3 or > Positive: 0 Screen Result (Pos requires Nsg. Audit-10AR): Negative *Physical Exam - Vital Signs Last Vital Signs Temp Pulse Resp BP Pulse Ox 98.6 F 86 18 144/83 100 12/14/19 19:18 12/14/19 19:18 12/14/19 19:18 12/14/19 19:18 12/14/19 19:18 ED Treatment Course - Medications Given in the ED: ED Medications Discontinued Medications Generic Name Dose Route Start Last Admin Trade Name Freq PRN Reason Stop Dose Admin Diphenhydramine HCl 25 mg 12/14/19 19:20 12/14/19 19:57 Benadryl Injection - IVPUSH 12/14/19 19:21 25 mg ONCE ONE Administration Metoclopramide HCl 10 mg 12/14/19 19:20 12/14/19 19:57 Reglan Injection - IVPUSH 12/14/19 19:21 10 mg ONCE ONE Administration Sodium Chloride 1,000 ml 12/14/19 19:21 12/14/19 19:57 Normal Saline - IV 12/14/19 19:22 1,000 ml ONCE ONE Administration Medical Decision Making - Medical Decision Making 12/14/19 21:20 A/P: 24-year-old woman with frontal headache radiating to the right rastafari over 3 days Photophobia presents otherwise neurologic exam is unremarkable Labs and medications per RME. Zofran 4 mg IV push Reassess 12/14/19 21:22 Patient reports her headache is currently a 3/10 and is requesting discharge. Discharge home with referral for neurology Portions of this note have been documented using voice recognition software. As a result, errors may occur in the insurance adjuster process. Effort has been made to correct all grammatical and insurance adjuster error, but some may have been missed which may produce sporadic inaccurate insurance adjuster or nonsensical phrases. Discharge - Discharge Information Problems reviewed: Yes Clinical Impression/Diagnosis: Headache Qualifiers: Headache type: unspecified Headache chronicity pattern: acute headache Intractability: not intractable Qualified Code(s): R51 - Headache Condition: Stable Disposition: HOME - Admission No - Follow up/Referral Referrals: Geovanny Carballo MD [Staff Physician] - - Patient Discharge Instructions Additional Instructions: Take Tylenol or Motrin as needed for headaches. Keep a diary of all food to eat and activities performed prior to headaches starting. Make an appointment with her primary doctor for reevaluation within the next week. Return to emergency department for worsening headache, blurry vision, dizziness, nausea, vomiting or any other concerns. Thank you very much for for choosing us to provide emergent health care needs. - Post Discharge Activity
[2019-12-14 21:57] VITALS: BP 119/63; PULSE 83; TEMP 98.1
== END 2019-12-14 21:40 | disposition home or self-care (01) ==
LOC: JER 19:12
PROC: 3E033GC Introduction of Other Therapeutic Substance into Peripheral Vein, Percutaneous Approach (ICD-10-PCS; principal; 2019-12-14)
DX: R51 Headache (principal)
CPT/HCPCS: 99284-25

== ENCOUNTER 2021-07-15 17:43 | Emergency (ER) | payer OTHER ==
[2021-07-15 17:55] VITALS: BP 122/80; PULSE 83; TEMP 97.8; BMI 35.5
[2021-07-15] MEDS ORDERED: LIDOCAINE 5% TOPICAL PATCH TP ONE (19:10)
[2021-07-15] MEDS ORDERED: NAPROXEN 500 MG TABLET PO ONE (19:10)
[2021-07-15 20:12] LABS: EPI CELLS 16 /uL (0-25.1); HYALINE CASTS 6 /uL (0-3.1); PH,URINE 6.5 (5.0-8.0); URINE APPEARANCE CLEAR; URINE BACTERIA 37 /uL (0-1359); URINE BILIRUBIN NEGATIVE (NEGATIVE); URINE COLOR YELLOW; URINE GLUCOSE (UA) NEGATIVE (NEGATIVE); URINE KETONE TRACE (NEGATIVE); URINE LEUK ESTERASE 1+ (NEGATIVE); URINE NITRITE NEGATIVE (NEGATIVE); URINE PROTEIN NEGATIVE (NEGATIVE); URINE RBC 76 /uL (0-23.9); URINE WBC 202 /uL (0-25.8)
[2021-07-15] MEDS ORDERED: LIDOCAINE 5% TOPICAL PATCH ONE (20:21)
[2021-07-15] MEDS ORDERED: NAPROXEN 500 MG TABLET ONE (20:21)
[2021-07-15] MEDS ORDERED: LIDOCAINE PATCH REMOVAL MC SCH (22:00)
== END 2021-07-15 22:41 | disposition home or self-care (01) ==
LOC: JER 17:43
DX: R51.9 Headache, unspecified (principal); M62.830 Muscle spasm of back
CPT/HCPCS: 81003; 84703; 99284-25; C9803; U0003; U0005

== ENCOUNTER 2022-07-28 07:54 | Emergency (ER) | payer OTHER ==
[2022-07-28 08:06] VITALS: BMI 33.9
[2022-07-28] MEDS ORDERED: SODIUM CHLORIDE 1,000 ML IV STA (09:01)
[2022-07-28] MEDS ORDERED: ONDANSETRON 4 MG/2 ML VIAL IVPUSH ONE (09:01)
[2022-07-28] MEDS ORDERED: ACETAMINOPHEN 1000 MG/100 ML BAG IVPB ONE (09:01)
[2022-07-28] MEDS ORDERED: ONDANSETRON 4 MG/2 ML VIAL ONE (09:17)
[2022-07-28] MEDS ORDERED: ACETAMINOPHEN INJECTION 100 ML IVPB ONE (09:17)
[2022-07-28 09:25] LABS: EPI CELLS >36 /uL (0-25.1); HYALINE CASTS 3 /uL (0-3.1); PH,URINE 5.5 (5.0-8.0); URINE APPEARANCE CLOUDY; URINE BACTERIA 361 /uL (0-1359); URINE BILIRUBIN 1+ (NEGATIVE); URINE COLOR DK YELLOW; URINE GLUCOSE (UA) NEGATIVE (NEGATIVE); URINE KETONE TRACE (NEGATIVE); URINE LEUK ESTERASE NEGATIVE (NEGATIVE); URINE NITRITE NEGATIVE (NEGATIVE); URINE PROTEIN 1+ (NEGATIVE); URINE WBC 26 /uL (0-25.8)
[2022-07-28 09:26] LABS: URINE RBC 97.2 /uL (0-23.9)
[2022-07-28 09:37] LABS: HCG,QUALITATIVE URINE Negative
[2022-07-28] MEDS ORDERED: LIDOCAINE 5% TOPICAL PATCH TP ONE (09:43)
[2022-07-28 10:24] LABS: BASO % 0.6 % (0-2.0); EOS % 0.7 % (0-4.5); HEMATOCRIT 43.5 % (32.4-45.2); HEMOGLOBIN 14.2 GM/dL (10.7-15.3); MCH 27.5 pg (25.7-33.7); MCHC 32.8 g/dl (32.0-36.0); MEAN CELL VOLUME 84.1 fl (80-96); MEAN PLT VOLUME 8.8 fl (7.5-11.1); MONO % 13.1 % (3.8-10.2); NEUT % 66.6 % (42.8-82.8); PLATELET COUNT 328 10^3/uL (134-434); RBC 5.17 M/mm3 (3.60-5.2); RDW 14.7 % (11.6-15.6); WHITE BLOOD COUNT 5.9 K/mm3 (4.0-10.0)
[2022-07-28 10:52] LABS: CALCIUM 9.6 mg/dL (8.5-10.1)
[2022-07-28 10:53] LABS: ALBUMIN 3.9 g/dl (3.4-5.0); BLOOD UREA NITROGEN 11.1 mg/dL (7-18)
[2022-07-28 10:56] LABS: CREATININE 0.7 mg/dL (0.55-1.3)
[2022-07-28 10:58] LABS: BILIRUBIN,TOTAL 0.7 mg/dL (0.2-1); TOT PROT 7.6 g/dl (6.4-8.2)
[2022-07-28] MEDS ORDERED: KETOROLAC TROMETHAMINE 30 MG/1 ML VIAL IVPUSH ONE (11:24)
[2022-07-28] MEDS ORDERED: KETOROLAC TROMETHAMINE 30 MG/1 ML VIAL ONE (11:25)
[2022-07-28 11:46] VITALS: BP 112/66; PULSE 73; RESP 18; TEMP 98.4
[2022-07-28] MEDS ORDERED: LIDOCAINE PATCH REMOVAL MC ONE (22:00)
== END 2022-07-28 11:53 | disposition home or self-care (01) ==
LOC: JER 07:54
PROC: 3E033GC Introduction of Other Therapeutic Substance into Peripheral Vein, Percutaneous Approach (ICD-10-PCS; principal; 2022-07-28)
DX: R11.2 Nausea with vomiting, unspecified (principal); R19.7 Diarrhea, unspecified
CPT/HCPCS: 36415; 74176-TC; 80053; 81003; 83690; 84703; 85025; 87086; 99285-25